=== PATIENT | female | born 1975 | race Caucasian/White ===

== ENCOUNTER 2020-06-05 20:00 | Emergency (ER) | payer MEDICAID ==
[~2020-06-05] VITALS: Ht 157.5 cm; Wt 75.5 kg
[2020-06-05 20:09] VITALS: Ht 157.5 cm; Wt 75.5 kg
[2020-06-05 20:40] VITALS: BP 135/63
== END 2020-06-05 20:45 | disposition home or self-care (01) ==
LOC: ED 20:00
DX: K64.8 Other hemorrhoids (principal); I10 Essential (primary) hypertension